=== PATIENT | female | born 1990 ===

== ENCOUNTER 2021-02-17 06:28 | Emergency (ER) | payer MEDICAID ==
[~2021-02-17] VITALS: Ht 170.2 cm; Wt 126.0 kg
[2021-02-17] MEDS ORDERED: KETOROLAC 30MG/ML VIAL IV STA (07:03)
[2021-02-17] MEDS ORDERED: DEXAMETHASONE 10 MG/ML VIAL IV ONE (07:15)
[2021-02-17] MEDS ORDERED: SODIUM CHLORIDE 0.9% 1,000 ML IV ONE (07:15)
[2021-02-17 08:21] LABS: BASOPHILS % 0.2 % (0.0-2.0); EOSINOPHILS % 0.7 % (0.0-5.0); HEMATOCRIT. 38.4 % (36.0-48.0); HEMOGLOBIN. 12.5 g/dL (12.0-16.0); LYMPHOCYTES % 12.4 % (20.0-50.0); MEAN CORPUSCULAR HEMOGLOBIN 27.4 pg (28.0-32.0); MEAN CORPUSCULAR VOLUME 84.2 fL (81.0-99.0); MEAN PLATELET VOLUME 8.4 fl (7.4-10.4); MONOCYTES % 2.6 % (2.0-8.0); NEUTROPHILS % 84.1 % (40.0-76.0); PLATELET 292 x1000/uL (130-400); RED BLOOD CELL COUNT 4.56 mill/uL (4.2-5.4); RED CELL DISTRIBUTION WIDTH 15.3 % (11.6-14.6)
[2021-02-17 08:31] LABS: CHLORIDE 110 mEq/L (98-107)
[2021-02-17 08:32] LABS: PROTHROMBIN TIME 10.3 sec (9.6-11.0)
[2021-02-17 08:43] LABS: HCG SCREEN NEGATIVE
[2021-02-17 08:54] LABS: MONOTEST NEGATIVE (NEGATIVE)
[2021-02-17 08:59] LABS: CLARITY URINE CLOUDY (CLEAR); COLOR URINE YELLOW (YELLOW); KETONES URINE NEGATIVE (NEGATIVE); LEUKOCYTE ESTERASE URINE TRACE (NEGATIVE); NITRITE URINE NEGATIVE (NEGATIVE); OCCULT BLOOD URINE NEGATIVE (NEGATIVE); PH URINE 5.5 (4.5-8.0); PROTEIN URINE NEGATIVE (NEGATIVE); SPECIFIC GRAVITY URINE 1.012 (1.005-1.030)
[2021-02-17] MEDS ORDERED: IOHEXOL-300 100 ML BOTTLE ONE (09:42)
[2021-02-17] MEDS ORDERED: CLINDAMYCIN 600 MG in DEXTROSE 5% WATER 50 ML IV ONE (09:45)
[2021-02-17] MEDS ORDERED: CLINDAMYCIN 600MG PREMIX 50 ML IV NR (10:00)
[2021-02-17 12:00] VITALS: BP 124/60
[2021-02-17] MEDS ORDERED: PRED10TA MT (13:12)
[2021-02-17] MEDS ORDERED: AMOX-424 MT (13:12)
[2021-02-17] MEDS ORDERED: HYDR-4346 MT (13:12)
[2021-02-17] MEDS ORDERED: ONDA4TAB5 MT (13:12)
[2021-02-17] MEDS ORDERED: IBUP-2030 MT (13:12)
== END 2021-02-17 13:32 | disposition home or self-care (01) ==
LOC: ER 06:28
DX: J03.90 Acute tonsillitis, unspecified (principal); I49.9 Cardiac arrhythmia, unspecified; Z90.49 Acquired absence of other specified parts of digestive tract
CPT/HCPCS: 36415; 70491; 71045; 80053; 81003; 81025; 84703; 85025; 85610; 86308; 87430; 93005; 96361; 96365; 96375; 99285; J1100; J1885; J3490; J7030; Q9967; Z7610; J7060